=== PATIENT | male | born 1995 | race Caucasian/White ===

== ENCOUNTER 2023-05-22 22:55 | Emergency (ER) | payer SELFPAY ==
[~2023-05-22] VITALS: Ht 162.6 cm; Wt 79.4 kg
[2023-05-22 23:39] VITALS: BP_SYST 153; PULSE 77; RESP 20; TEMP 99; O2SAT 96
--- NOTE | 2023-05-22 23:44 | NUR ---
Patient triaged and placed in waiting room. VSS and patient appears in no acute distress at this time. Accompanied by PARTNER, awaiting available bed, and MD notified of need for MSE.
--- NOTE | 2023-05-23 00:34 | NUR ---
ER Dr. HENRY at CHAIR side examining patient.
--- NOTE | 2023-05-23 00:34 | NUR ---
PT BIB PARTNER FROM HOME, AMBULATED TO CHAIR 1. PT A&Ox4, ABLE TO MAKE NEEDS KNOWN. PT C/O RIGHT EAR PAIN AND ITCHINESS x2-3 WEEKS. PT DENIES INJURY TO EAR. PT DENIES PUTTING ANY OBJECTS IN EAR OTHER THAN Q-TIPS TO CLEAN EAR AND EAR DROPS. PT STATES TAKING TYLENOL AT 1500 FOR PAIN. SAFETY PRECAUTIONS IN PLACE.
[2023-05-23] MEDS ORDERED: AUG875 PO (02:20)
[2023-05-23] MEDS ORDERED: CIPR7.5D OT (02:20)
[2023-05-23 02:25] VITALS: BP_SYST 132; PULSE 68; RESP 18; TEMP 99; O2SAT 98
--- NOTE | 2023-05-23 02:25 | NUR ---
Patient given written and verbal discharge instructions and verbalizes understanding. ER MD discussed with patient the results and treatment provided. Patient in stable condition. ID arm band removed. Rx of augmentin and cipro given. Patient educated on pain management and to follow up with PMD. Pain Scale 0/10 Opportunity for questions provided and answered. Medication side effect fact sheet provided.
== END 2023-05-23 02:25 | disposition home or self-care (01) ==
LOC: SED 22:55
DX: T16.1XXA Foreign body in right ear, initial encounter (principal); H66.91 Otitis media, unspecified, right ear; W45.8XXA Other foreign body or object entering through skin, initial encounter; Y93.89 Activity, other specified; Y92.89 Other specified places as the place of occurrence of the external cause; Y99.8 Other external cause status
CPT/HCPCS: 99284